=== PATIENT | female | born 1990 | race African-American/Black ===

== ENCOUNTER 2022-05-23 13:10 | Emergency (ER) | payer BC ==
[~2022-05-23] VITALS: Ht 157.5 cm; Wt 50.0 kg
[2022-05-23] MEDS ORDERED: SODIUM CHLORIDE 0.9% 1,000 ML IV ONE (15:15)
[2022-05-23] MEDS ORDERED: TETANUS, DIPHTHERIA, PERTUSSIS VAC/PF 0.5ML (>10YR OLD) IM ONE ×2 (15:15→18:10)
[2022-05-23 15:43] LABS: HEMATOCRIT. 43.3 % (36.0-48.0); MEAN CORPUSCULAR HEMOGLOBIN 27.6 pg (28.0-32.0); MEAN CORPUSCULAR VOLUME 85.3 fL (81.0-99.0); MEAN PLATELET VOLUME 8.9 fl (7.4-10.4); PLATELET 280 x1000/uL (130-400); RED BLOOD CELL COUNT 5.08 mill/uL (4.2-5.4); RED CELL DISTRIBUTION WIDTH 14.9 % (11.6-14.6)
[2022-05-23 15:47] LABS: CHLORIDE 113 mEq/L (98-107)
[2022-05-23 15:54] LABS: ETHANOL BLOOD < 10 mg/dL
[2022-05-23 16:07] LABS: HCG SCREEN NEGATIVE
[2022-05-23] MEDS ORDERED: BACITRACIN ZINC OINT UDPKT TOP ONE (17:00)
[2022-05-23] MEDS ORDERED: MIDAZOLAM HCL 2 MG/2 ML VIAL IV ONE (17:00)
[2022-05-23 17:07] LABS: PLATELET ESTIMATE NORMAL
[2022-05-23 19:35] LABS: CLARITY URINE CLEAR (CLEAR); COLOR URINE YELLOW (YELLOW); KETONES URINE NEGATIVE (NEGATIVE); LEUKOCYTE ESTERASE URINE TRACE (NEGATIVE); NITRITE URINE NEGATIVE (NEGATIVE); OCCULT BLOOD URINE NEGATIVE (NEGATIVE); PH URINE 5.5 (4.5-8.0); PROTEIN URINE 1+ (NEGATIVE); SPECIFIC GRAVITY URINE 1.007 (1.005-1.030); UROBILINOGEN URINE 0.2 E.U./dL (0.2-1.0)
[2022-05-23 19:43] LABS: *BARBITURATES SCREEN URINE NEGATIVE (NEGATIVE); CANNABINOID URINE SCREEN NEGATIVE (NEGATIVE); METHADONE URINE SCREEN NEGATIVE (NEGATIVE); OPIATES URINE SCREEN NEGATIVE (NEGATIVE); PHENCYCLIDINE URINE SCREEN NEGATIVE (NEGATIVE)
[2022-05-23 20:14] LABS: *AMPHETAMINES SCREEN URINE PRESUMTIVE POSITIVE (NEGATIVE); *BENZODIAZEPINES SCREEN URINE PRESUMTIVE POSITIVE (NEGATIVE); *COCAINE SCREEN URINE PRESUMTIVE POSITIVE (NEGATIVE)
[2022-05-24] MEDS: RISPERIDONE 1MG TABLET PO SCH (21:00)
[2022-05-25] MEDS: RISPERIDONE 1MG TABLET PO SCH ×2 (09:00→23:19)
[2022-05-26] MEDS: RISPERIDONE 1MG TABLET PO SCH ×2 (09:58→22:10)
[2022-05-27] MEDS: RISPERIDONE 1MG TABLET PO SCH ×2 (08:38→20:27)
[2022-05-28] MEDS: RISPERIDONE 1MG TABLET PO SCH (09:03)
[2022-05-28 11:45] VITALS: BP 116/72
== END 2022-05-28 12:05 | disposition home or self-care (01) ==
LOC: ER 13:10
DX: F32.9 Major depressive disorder, single episode, unspecified (principal); F29 Unspecified psychosis not due to a substance or known physiological condition; R45.851 Suicidal ideations; F19.10 Other psychoactive substance abuse, uncomplicated; Z20.822 Contact with and (suspected) exposure to COVID-19
CPT/HCPCS: 36415; 70450; 80053; 80305; 80320; 81003; 84703; 85025; 90471; 90715; 96360; 99285; C9803; J7030; U0003; U0005; G0480